=== PATIENT | male | born 1980 | race Hispanic/Latino ===

== ENCOUNTER → 2022-08-03 | Outpatient (CLI) | payer OTHER | LOC: M CARPUL 08:07 | PROVIDERS: ATTEND Physician Assistant | DX: R06.02 Shortness of breath (principal) ==

== ENCOUNTER → 2023-03-01 | Outpatient (REF) | LOC: M PLAIMG 09:26 | PROVIDERS: ATTEND Internal Medicine | DX: R52 Pain, unspecified (principal) ==

== ENCOUNTER → 2023-04-07 | Outpatient (REF) | LOC: M PLAIMG 11:31 | PROVIDERS: ATTEND Internal Medicine | DX: R52 Pain, unspecified (principal) ==